=== PATIENT | male | born 1995 | race Caucasian/White ===

== ENCOUNTER 2020-04-14 14:05 | Emergency (ER) | payer BC, OTHER ==
[~2020-04-14] VITALS: Ht 188 cm; Wt 159.0 kg
[2020-04-14] MEDS ORDERED: ASPIRIN CHEWABLE 81 MG TABLET. PO ONE (14:30)
--- NOTE | 2020-04-14 14:45 | PHYS DOC ---
Past History Past Medical History: No Pertinent History Past Surgical History: No Surgical History Smoking: Cigarettes Alcohol Use: Occasionally Adult General Chief Complaint Chief Complaint: CHEST PAIN HPI HPI Patient is a 25-year-old male who complains of substernal chest pain. Onset was prior to arrival while at work. Patient reports trying to lift up heavy bag of wood from the grand position when he developed sharp, deep, nonradiating substernal chest pain that was rated 7/10 severity. Timing of symptoms lasted approximately 10 to 20 minutes and improved greatly without intervention by the time he arrived to our ER rating it a 3 out of 10 in severity on arrival. Associated symptoms include mild nausea and headache. Patient otherwise is an obese male with no other known past medical issues, does not take any medications on a daily basis. He admits smoking cigarettes daily. He admits a positive cardiac history with his father suffering a heart attack at an age less than 55. Patient is never passed out during sports or physical activity. He has never had a comprehensive heart work-up before. Patient reports similar episode happened a couple years ago and ended up being "a pulled chest muscle". Denies any recent febrile illness or known COVID-19 contact Review of Systems Review of Systems Fourteen body systems of review of systems have been reviewed. See HPI for pertinent positives and negative responses, other lowery all other systems are negative, non-pertinent or non-contributory Current Medications Current Medications Current Medications Medications (Trade) Dose Ordered Sig/Tommy Start Time Stop Time Status Last Admin Dose Admin Aspirin (Aspirin Chewable) 324 mg 1X ONCE 04/14/20 14:30 04/14/20 14:31 DC Allergies Allergies Allergies Coded Allergies Type Severity Reaction Last Updated Verified No Known Drug Allergies 04/14/20 No Physical Exam Physical Exam Constitutional: Well developed, obese, well nourished, no acute distress, non- toxic appearance. [] HENT: Normocephalic, atraumatic, bilateral external ears normal, oropharynx moist, no oral exudates, nose normal. [] Eyes: PERRLA, EOMI, conjunctiva normal, no discharge. [] Neck: Normal range of motion, no tenderness, supple, no stridor. [] Cardiovascular:Heart rate regular rhythm, no murmur rubs or gallops [] Lungs & Thorax: Bilateral breath sounds clear to auscultation [] Abdomen: Bowel sounds normal, soft, no tenderness, no masses, no pulsatile masses. [] Skin: Warm, dry, no erythema, no rash. [] Back: No tenderness, no CVA tenderness. [] Extremities: No tenderness, no cyanosis, no clubbing, ROM intact, no edema. [] Neurologic: Alert and oriented X 3, normal motor function, normal sensory f unction, no focal deficits noted. [] Psychologic: Affect normal, judgement normal, mood normal. [] Current Patient Data Vital Signs Vital Signs Date Time Temp Pulse Resp B/P (MAP) Pulse Ox O2 Delivery O2 Flow Rate FiO2 04/14/20 15:05 88 16 120/70 (87) 98 Room Air 04/14/20 14:11 98.6 89 16 129/60 (83) 98 Room Air 04/14/20 14:09 98.6 89 16 129/60 (83) 98 Room Air Lab Results Laboratory Tests Test 04/14/20 14:28 White Blood Count 10.7 x10^3/uL Red Blood Count 5.24 x10^6/uL Hemoglobin 16.3 g/dL Hematocrit 46.5 % Mean Corpuscular Volume 89 fL Mean Corpuscular Hemoglobin 31 pg Mean Corpuscular Hemoglobin Concent 35 g/dL Red Cell Distribution Width 13.6 % Platelet Count 256 x10^3/uL Neutrophils (%) (Auto) 67 % Lymphocytes (%) (Auto) 21 % Monocytes (%) (Auto) 7 % Eosinophils (%) (Auto) 5 % Basophils (%) (Auto) 1 % Neutrophils # (Auto) 7.1 x10^3uL Lymphocytes # (Auto) 2.2 x10^3/uL Monocytes # (Auto) 0.7 x10^3/uL Eosinophils # (Auto) 0.5 x10^3/uL Basophils # (Auto) 0.1 x10^3/uL Sodium Level 142 mmol/L Potassium Level 3.3 mmol/L Chloride Level 106 mmol/L Carbon Dioxide Level 25 mmol/L Anion Gap 11 Blood Urea Nitrogen 18 mg/dL Creatinine 1.1 mg/dL Estimated GFR (Cockcroft-Gault) 83.0 BUN/Creatinine Ratio 16 Glucose Level 101 mg/dL Calcium Level 9.2 mg/dL Total Bilirubin 0.6 mg/dL Aspartate Amino Transf (AST/SGOT) 25 U/L Alanine Aminotransferase (ALT/SGPT) 47 U/L Alkaline Phosphatase 84 U/L Troponin I Quantitative < 0.017 ng/mL Total Protein 7.0 g/dL Albumin 3.5 g/dL Albumin/Globulin Ratio 1.0 Current Medications Medications (Trade) Dose Ordered Sig/Tommy Route PRN Reason Start Time Stop Time Status Last Admin Dose Admin Aspirin (Aspirin Chewable) 324 mg 1X ONCE PO 04/14/20 14:30 04/14/20 14:31 DC 04/14/20 14:47 EKG EKG Ordered and interpreted by myself at 1419 hrs. as normal sinus rhythm at 87 bpm, unremarkable intervals, no axis deviation, no ischemic findings, no fascicular blocks, no STEMI Radiology/Procedures Radiology/Procedures PROCEDURE: CHEST AP ONLY CHEST AP ONLY History: Chest pain Comparison: None. Findings: Single view of the chest is submitted. Pericardial cardiac silhouette is upper limits of normal. There is no dependent pleural fluid or pneumothorax. No lobar infiltrate is identified by radiograph. Impression: 1. No convincing acute radiographic abnormality is identified. Electronically signed by: Paramjit Patterson MD (04/14/2020 2:44 PM) [id number] Course & Med Decision Making Course & Med Decision Making Given History, Exam, and Workup I have low suspicion for ACS, Pneumothorax, Pneumonia, Pulmonary Embolus, Tamponade, Aortic Dissection or other emergent problem as a cause for this presentation. Patient does have risk factors such as FHx, obesity, and smoking. I advised him to follow-up with PCP in outpatient setting for continued care. He did not have a PCP so I gave him a list of local offices that are accepting new patients Patient asymptomatic since arrival and wanting to go home, I am agreeable to this Patient to call and schedule PCP follow-up in upcoming 1-7 days Strict return precautions discussed with good understanding, all questions and concerns addressed prior to DC home in stable condition Dragon Disclaimer Dragon Disclaimer This electronic medical record was generated, in whole or in part, using a voice recognition dictation system. The HEART Score for CP Pts HEART Score for Chest Pain: HEART Score for Chest Pain Response (Comments) Value History Slighlty/Non-Suspicious 0 ECG Normal 0 Age < 45 0 Risk Factors 1 or 2 Risk Factors 1 Troponin < Normal Limit 0 Total 1 Risk Factors: Risk Factors: DM, Current or recent (<one month) smoker, HTN, HLP, family history of CAD, obesity. Risk Scores: Score 0 - 3: 2.5% MACE over next 6 weeks - Discharge Home Score 4 - 6: 20.3% MACE over next 6 weeks - Admit for Clinical Observation Score 7 - 10: 72.7% MACE over next 6 weeks - Early Invasive Strategies Departure Departure: Impression: Primary Impression: Chest pain, unspecified Additional Impressions: Obesity Tobacco user Disposition: HOME/RESIDENCE PRIOR TO ADM Condition: STABLE Referrals: PCP,NO (PCP) Patient Instructions: Costochondritis, Musculoskeletal Pain Additional Instructions: As discussed prior to your ER departure, please choose from a list of the following PCP providers attached to this documentation to call and schedule follow-up care in upcoming 1 to 7 days Continue supportive care for your chest wall pain, advise outpatient stretches, heating pads, and NSAIDs/Tylenol as needed for pain Justification of Admission: Justification of Admission: Justification of Admission Dx: N/A Problem Qualifiers KATEY WARREN DO Apr 14, 2020 14:45
[2020-04-14 14:58] LABS: BASO # 0.1 x10^3/uL (0.0-0.2); BASO % 1 % (0-3); EOS # 0.5 x10^3/uL (0.0-0.7); EOS % 5 % (0-3); HEMATOCRIT 46.5 % (39.0-53.0); HEMOGLOBIN 16.3 g/dL (13.0-17.5); LYMPH # 2.2 x10^3/uL (1.0-4.8); LYMPH % 21 % (24-48); MEAN CORPUSCULAR HEMOGLOBIN 31 pg (25-35); MEAN CORPUSCULAR HGB CONC 35 g/dL (31-37); MEAN CORPUSCULAR VOLUME 89 fL (79-100); MONO # 0.7 x10^3/uL (0.0-1.1); MONO % 7 % (0-9); NEUT # 7.1 x10^3uL (1.8-7.7); NEUT % 67 % (31-73); PLATELET COUNT 256 x10^3/uL (140-400); RED BLOOD COUNT 5.24 x10^6/uL (4.30-5.70); RED CELL DISTRIBUTION WIDTH 13.6 % (11.5-14.5); WHITE BLOOD COUNT 10.7 x10^3/uL (4.0-11.0)
[2020-04-14 15:01] LABS: CALCIUM 9.2 mg/dL (8.5-10.1); CREATININE 1.1 mg/dL (0.7-1.3); POTASSIUM 3.3 mmol/L (3.5-5.1)
[2020-04-14 15:05] VITALS: BP 120/70
[2020-04-14 15:06] LABS: ALBUMIN 3.5 g/dL (3.4-5.0); TOTAL BILIRUBIN 0.6 mg/dL (0.2-1.0)
--- NOTE | 2020-04-14 15:21 | EKG ---
[address] [address] Test Date: 2020-04-14 Test Time: 14:07:03 Pat Name: ADRIÁN FLOR Department: Room: Gender: M Event Sales Assistant: CAROL : 1995 Requested By: KATEY WARREN Order Number: [id number] Reading MD: Measurements Intervals [place] Rate: 87 P: 34 AL: 190 QRS: 16 QRSD: 92 T: 34 QT: 344 QTc: 414 Interpretive Statements SINUS RHYTHM OTHERWISE NORMAL ECG RI6.02 No previous ECG available for comparison
== END 2020-04-14 15:50 | disposition home or self-care (01) ==
LOC: ER 14:05
DX: R07.2 Precordial pain (principal); E66.9 Obesity, unspecified; F17.210 Nicotine dependence, cigarettes, uncomplicated; Z68.42 Body mass index [BMI] 45.0-49.9, adult
CPT/HCPCS: 36415; 71045; 80053; 84484; 85025; 93005; 99285-25